=== PATIENT | male | born 1935 | race Caucasian/White ===

== ENCOUNTER → 2016-05-26 | Outpatient (CLI) | payer OTHER ==
[2016-05-26 19:08] LABS: TOTAL IRON BINDING CAPACITY 272 mcg/dl (250-450)
--- NOTE | 2016-06-03 15:51 | CODING QUERY MEDICAL NECESSITY ---
CQSUPPORTING DIAGNOSIS NEEDED A supporting diagnosis is required for the test/procedure performed on this patient in order for us to be reimbursed by the patient's insurance. Please provide a supporting diagnosis for the following test/procedure listed below next to the test name along with your signature. *If there is no additional diagnosis for this patient that would support the following test/procedure please document that below next to the test/procedure. Test(s)/Procedure(s) that require a supporting diagnosis: DOS 05/26/16 VITAMIN B12 FOLIC ACID Provider Signature: Date: Thank you Deisy Brunner [facility] Information Management Once completed, please kindly fax back to [phone] For questions please call [phone]
== END | disposition home or self-care (01) ==
LOC: C.LABMFLN 10:11
PROVIDERS: ATTEND Family Medicine
DX: D64.9 Anemia, unspecified (principal)

== ENCOUNTER → 2016-10-26 | Outpatient (CLI) | payer OTHER, MEDICARE ==
[2016-10-26 18:15] LABS: BASO % 0.2 %; BASO ABS # 0.01 K/uL (0-0.2); HEMATOCRIT 31.5 % (42-52); IG% 3.7 %; LYMPH % 10.2 %; LYMPH ABS # 0.61 K/uL (1.2-3.4); MEAN CELL VOLUME 94.3 fL (80-100); MEAN CORPUSCULAR HEMOGLOBIN 31.4 pg (25-34); MEAN CORPUSCULAR HGB CONC 33.3 g/dl (32-36); MONO % 7.5 %; NEUT % 78.4 %; PLATELET COUNT 165 K/uL (130-400); RED BLOOD COUNT 3.34 M/uL (4.7-6.1); WHITE BLOOD COUNT 5.98 K/uL (4.8-10.8)
[2016-10-26 18:42] LABS: CHOLESTEROL/HDL RATIO 2.9; THYROID STIMULATING HORMONE 2.5 uIu/ml (0.300-4.500)
[2016-10-26 19:33] LABS: ANISOCYTOSIS PRESENT; COMPLETE YES; HYPERSEGMENTED POLYS 1+; POLYCHROMASIA 1+; SCHISTOCYTES OCCASIONAL; TEAR DROP CELLS 1+
== END | disposition home or self-care (01) ==
LOC: C.LABMFLN 14:54
PROVIDERS: ATTEND Family Medicine
DX: E78.5 Hyperlipidemia, unspecified (principal); D69.6 Thrombocytopenia, unspecified; R06.2 Wheezing; J18.1 Lobar pneumonia, unspecified organism

== ENCOUNTER → 2017-06-27 | Outpatient (CLI) | payer OTHER, MEDICARE ==
[2017-06-27 17:49] LABS: BASO % 0.3 %; BASO ABS # 0.02 K/uL (0-0.2); EOS % 0.4 %; EOS ABS # 0.03 K/uL (0-0.5); HEMATOCRIT 36.8 % (42-52); HEMOGLOBIN 11.9 g/dL (14.0-18.0); IG# 0.07 K/uL (0.00-0.02); LYMPH % 32.8 %; LYMPH ABS # 2.23 K/uL (1.2-3.4); MEAN CELL VOLUME 96.1 fL (80-100); MEAN CORPUSCULAR HEMOGLOBIN 31.1 pg (25-34); MEAN CORPUSCULAR HGB CONC 32.3 g/dl (32-36); MONO % 16.3 %; MONO ABS # 1.11 K/uL (0.11-0.59); NEUT % 49.2 %; NEUT ABS # 3.34 K/uL (1.4-6.5); PLATELET COUNT 155 K/uL (130-400); RED CELL DISTRIBUTION WIDTH CV 24.1 % (11.5-14.5); RED CELL DISTRIBUTION WIDTH SD 75.5 fL (36.4-46.3)
[2017-06-27 19:59] LABS: AST/SGOT 16 U/L (15-37); BLOOD UREA NITROGEN 17 mg/dl (7-18); CALCIUM 8.6 mg/dl (8.5-10.1); CARBON DIOXIDE 25 mmol/L (21-32); CREATININE 1.14 mg/dl (0.60-1.40); GLUCOSE 119 mg/dl (70-99); POTASSIUM 3.8 mmol/L (3.5-5.1); SODIUM 141 mmol/L (136-145)
[2017-06-27 20:02] LABS: ALKALINE PHOSPHATASE 93 U/L (45-117); ALT/SGPT 18 U/L (12-78); TOTAL PROTEIN 6.9 gm/dl (6.4-8.2)
== END | disposition home or self-care (01) ==
LOC: C.LABMFLN 14:00
PROVIDERS: ATTEND Family Medicine
DX: I10 Essential (primary) hypertension (principal); I25.810 Atherosclerosis of coronary artery bypass graft(s) without angina pectoris; E78.5 Hyperlipidemia, unspecified; I25.10 Atherosclerotic heart disease of native coronary artery without angina pectoris; D64.9 Anemia, unspecified; D69.6 Thrombocytopenia, unspecified